=== PATIENT | female | born 2000 | race Caucasian/White ===

== ENCOUNTER 2025-06-20 11:14 | Outpatient (CLI) | payer BC, SELFPAY ==
--- NOTE | ~2025-06-20 | US_ITS ---
US right upper quadrant Indication: Elevated liver enzymes Comparison: None Technique: Motley-scale and color Doppler images were obtained. Findings: LIVER: Unremarkable, liver contours intact, no lesions. Normal echogenicity. . GALLBLADDER/BILIARY: Unremarkable.No cholelithiais, wall thickening or pericholecystic fluid. No biliary dilatation. CBD 3 mm. Shelby sign negative. PANCREAS: Unremarkable. Right Kidney: Right kidney 11.8 cm, normal Impression: No acute abnormality. Reviewed, dictated and finalized at location P. Impression: No acute abnormality.
== END 2025-06-20 11:15 | disposition home or self-care (01) ==
LOC: MICIMG 11:15
PROVIDERS: PCP Nurse Practitioner Family; Visit Provider Nurse Practitioner Family
DX: R74.8 Abnormal levels of other serum enzymes (principal)
CPT/HCPCS: 76705

== ENCOUNTER 2025-06-20 14:19 | Outpatient (CLI) | payer BC, SELFPAY ==
--- NOTE | ~2025-06-20 | US_ITS ---
EXAMINATION: US pelvic complete, 06/20/2025 14:21 CDT HISTORY: Abnormal uterine bleeding Comparison: None Technique: Motley-scale and color Doppler images were obtained. Findings: Uterus: Uterus anteverted 8 x 3.4 x 4.6 cm. . Endometrium 6 mm. Right Ovary:Right ovary 2.5 x 1.8 x 2 cm, no adnexal mass, normal flow. Left Ovary: Left ovary 3.9 x 2.4 x 3.2 cm, no adnexal mass, normal flow. Free Fluid: None Impression: No etiology to explain abnormal uterine bleeding Reviewed, dictated and finalized at location P. Impression: No etiology to explain abnormal uterine bleeding
== END 2025-06-20 14:20 | disposition home or self-care (01) ==
LOC: MICIMG 14:19
PROVIDERS: PCP Nurse Practitioner Family
DX: N93.8 Other specified abnormal uterine and vaginal bleeding (principal)
CPT/HCPCS: 76856